=== PATIENT | female | born 1975 | race Caucasian/White ===

== ENCOUNTER 2018-05-26 20:55 | Emergency (ER) | payer MEDICAID ==
[2018-05-26] MEDS ORDERED: NS 1,000 ML IV ONE (21:32)
[2018-05-26] MEDS ORDERED: LORazepam 2 MG/ML INJ IVP ONE (21:32)
--- NOTE | 2018-05-26 21:32 | EDPHY ---
H & P Stated Complaint: "high pulse, elevated BP, body aches, temperature", stress, anxious Source: Patient Exam Limitations: No limitations - Personal History LMP (Females 10-55): Over 28 Days Ago Current Tetanus Diphtheria and Acellular Pertussis (TDAP): No - Medical/Surgical History Hx Asthma: No Hx Chronic Respiratory Disease: No Hx Diabetes: No Hx Cardiac Disease: No Hx Renal Disease: No Hx Cirrhosis: No Hx Alcoholism: No Hx HIV/AIDS: No Hx Splenectomy or Spleen Trauma: No Other PMH: HTN, anxiety - Social History Smoking Status: Heavy smoker Time Seen by Provider: 05/26/18 21:27 HPI/ROS: HPI: This is a 42-year-old female who presents with Chief Complaint: "high pulse, elevated BP, body aches, temperature", stress, anxious Location: Chest Quality: High blood pressure, rapid pulse, palpitations Duration: 5-6 weeks Signs and Symptoms: no shortness of breath at rest, no shortness of breath on exertion, no cough, no chest pain, no palpitations, no lower extremity edema, no wheezing, no orthopnea, no paroxysmal nocturnal dyspnea, no fever, no injury/ trauma, no hemoptysis, no carpal pedal spasms Timing: Intermittent episodes Severity: Moderate Context: Patient presents with 5-6 week history of elevated blood pressures with systolics in the 170s that she has been taking with her home blood pressure cuff accompanied by intermittent episodes of fast heart rate as high as 120 this afternoon. She reports that she took 40 mg of propanolol with relief. She normally takes propranolol for stress. Patient reports that she is under considerable stress and is very anxious. Family history of hypertension on her mother side. Modifying Factors: Propanolol with relief Comment: ROS: A comprehensive 10 system review of systems is otherwise negative aside from elements mentioned in the history of present illness. MEDICAL/SURGICAL/SOCIAL HISTORY: Medical history: Hypertension, anxiety Surgical history: Denies Social history: Nonsmoker. Denies alcohol, tobacco, drug use. CONSTITUTIONAL: Extremely anxious middle-aged white female, awake and alert, no obvious distress HEENT: Atraumatic and normocephalic, PERRL, EOMI. Nares patent; no rhinorrhea; no nasal mucosal edema. Tympanic membranes clear. Oropharynx clear, no exudate and moist pink mucosa. Airway patent. No lymphadenopathy. No meningismus. Cardiovascular: Normal S1/S2, regular rate, regular rhythm, without murmur rub or gallop. PULMONARY/CHEST: Symmetrical and nontender. Clear to auscultation bilaterally. Good air movement. No accessory muscle usage. ABDOMEN: Soft, nondistended, nontender, no rebound, no guarding, no peritoneal signs, no masses or organomegaly. No CVAT. EXTREMITIES: 2/2 pulses, strength 5/5, no deformities, no clubbing, no cyanosis or edema. NEUROLOGICAL: no focal neuro deficits. GCS 15. SKIN: Warm and dry, extensive scarring noted on bilateral upper extremities. No signs of abscess. no erythema. no rash. Good capillary refill. (Tamia Bustillo) Constitutional: Initial Vital Signs Temperature (C) 36.8 C 05/26/18 20:58 Heart Rate 86 05/26/18 20:58 Respiratory Rate 19 05/26/18 20:58 Blood Pressure 128/85 H 05/26/18 20:58 O2 Sat (%) 98 05/26/18 20:58 O2 Delivery Mode Room Air Allergies/Adverse Reactions: erythromycin base Allergy (Verified 05/26/18 21:03) Home Medications: Medication Instructions Recorded Propranolol HCl 05/26/18 Medical Decision Making - Diagnostics EKG Interpretation: 12 lead EKG: Indication: Palpitation Rhythm: Normal sinus rhythm, rate of 81 beats per minute [place]: Normal Intervals: Normal QRS: Normal ST segments: Nonspecific ST changes in V3 and V4 INTERPRETATION: No acute ischemic changes The 12 lead EKG was interpreted by myself and with attending. (Tamia Bustillo) ED Course/Re-evaluation: I did not see this patient while she was in the emergency department. However her care was discussed with the PA while the patient was in the department. I agree with treatment plan and management (Jae Montana) Vital signs reviewed and stable upon arrival. Placed on court recording monitor. EKG, IV access, laboratory studies, chest x-ray ordered EKG my read shows normal sinus rhythm with a rate of 81 beats per minute with non specific ST changes and 4 V3 and V4 Patient given 1 L normal saline and IV Ativan 1 mg 2215: Chest x-ray my read via PAC shows no opacity, no effusion, no widened mediastinum, no pneumothorax. 2245: Notified by [facility] that TROP 0.00 2320: Labs reviewed. WBC 12 K without left shift, potassium 5.7, creatinine 0.7, sodium 137. No signs of VTE/acute coronary syndrome After 1 L normal saline i-STAT potassium performed 0007: Blood pressure 103/72, heart rate 75, patient sleepy and not easily arousable. Notified by RN that she is concerned that patient has injected IV drugs into her IV access site. Security called to bedside. 0012: Repeat potassium 3.6 after 1 L IV fluids 0025: Security at bedside to search patient's belongings. Patient will be discharged to the [facility]. [place] PDMP: Database shows that she regularly had alprazolam and hydrocodone filled from May 2017 to February 2018. This patient was seen under the supervision of my secondary supervising physician. I evaluated care for this patient with attending. Discussed this patient with Dr. Montana who did not see the patient. (Tamia Bustillo) Differential Diagnosis: Chest pain including but not limited to myocardial ischemia, pulmonary embolus, chest wall pain, pleural inflammation and pulmonary infectious causes. (Tamia Bustillo) - Data Points Laboratory Results: Laboratory Results 05/26/18 22:30 05/26/18 22:30 Medications Given: Discontinued Medications Sodium Chloride (Ns) 1,000 mls @ 0 mls/hr IV EDNOW ONE; Wide Open PRN Reason: Protocol Stop: 05/26/18 21:33 Last Admin: 05/26/18 22:37 Dose: 1,000 mls Lorazepam (Ativan Injection) 1 mg IVP EDNOW ONE Stop: 05/26/18 21:33 Last Admin: 05/26/18 22:36 Dose: 1 mg Point of Care Test Results: Chemistry 05/27/18 05/26/18 00:11 22:31 POC Sodium 141 mEq/L mEq/L (135-145) POC Potassium 3.6 mEq/L mEq/L (3.3-5.0) POC Chloride 105 mEq/L mEq/L (97-110) POC BUN 19 mg/dL mg/dL (7-23) POC Creatinine 0.6 mg/dL mg/dL (0.6-1.0) POC Glucose 89 mg/dL mg/dL (70-100) POC Troponin I 0.00 ng/mL ng/mL (0.00-0.08) ISTAT H&H 05/27/18 00:11 POC Hgb 12.6 gm/dL gm/dL (12.6-16.3) POC Hct 37 % L % (38-47) Departure - Departure Disposition: Home, Routine, Self-Care Clinical Impression: Heart palpitations Condition: Good Instructions: Heart Palpitations (ED) Additional Instructions: Please refrain from using illegal drugs. Consume a minimum of 8-10 glasses of water or electrolyte fluid replacement drinks that include Gatorade, Powerade, Pedialyte. Take Propranolol as prescribed. Establish care at the [facility]. Referrals: [facility],. [Clinic] - As per Instructions
--- NOTE | 2018-05-26 22:39 | CPEKG ---
Test Reason : OPEN Blood Pressure : / mmHG Vent. Rate : 081 BPM Atrial Rate : 081 BPM P-R Int : 140 ms QRS Dur : 088 ms QT Int : 405 ms P-R-T Axes : 049 066 062 degrees QTc Int : 470 ms Sinus rhythm Confirmed by Jae Montana ([id number]) on 05/26/2018 10:38:53 PM Referred By: Confirmed By:Jae Montana
[2018-05-26 22:40] LABS: PLATELET COUNT 311 10^3/uL (150-400)
[2018-05-27 00:25] VITALS: BP 109/73
== END 2018-05-27 00:33 | disposition home or self-care (01) ==
DX: R00.2 Palpitations (principal); I10 Essential (primary) hypertension; R00.0 Tachycardia, unspecified
CPT/HCPCS: 82435-PO; 82565-PO; 82947-PO; 84132-PO; 84295-PO; 84484-ER; 84520-PO; 85014-ER; 96374; J2060